=== PATIENT | female | born 1960 | race African-American/Black ===

== ENCOUNTER 2023-11-20 14:11 | Emergency (ER) | payer BC ==
[~2023-11-20] VITALS: Ht 175.3 cm; Wt 116.0 kg
[2023-11-20 14:28] VITALS: O2SAT 96
[2023-11-20 15:19] LABS: BASOPHILS % 0.6 % (0.0-2.0); EOSINOPHILS % 1.7 % (0.0-5.0); HEMATOCRIT. 38.3 % (36.0-48.0); HEMOGLOBIN. 12.6 g/dL (12.0-16.0); LYMPHOCYTES % 38.3 % (20.0-50.0); MEAN CORPUSCULAR HEMOGLOBIN 28.3 pg (28.0-32.0); MEAN CORPUSCULAR HGB CONC 32.9 g/dL (31.0-37.0); MEAN PLATELET VOLUME 9.7 fl (7.4-10.4); MONOCYTES % 7.8 % (2.0-8.0); NEUTROPHILS % 51.6 % (40.0-76.0); PLATELET 222 x1000/uL (130-400); RED BLOOD CELL COUNT 4.45 mill/uL (4.2-5.4); RED CELL DISTRIBUTION WIDTH 15.2 % (11.6-14.6); WHITE BLOOD COUNT 5.7 x1000/uL (4.5-11.0)
[2023-11-20 15:22] LABS: CARBON DIOXIDE 31 mEq/L (21-32); CHLORIDE 105 mEq/L (98-107); POTASSIUM 3.6 mEq/L (3.5-5.1); SODIUM 142 mEq/L (136-145)
[2023-11-20 15:23] LABS: CALCIUM 10.2 mg/dL (8.7-10.4)
[2023-11-20 15:28] LABS: CREATININE 0.7 mg/dL (0.6-1.0); GLUCOSE 109 mg/dL (70-105); UREA NITROGEN BLOOD 8 mg/dL (9-23)
[2023-11-20 15:31] LABS: TROPONIN I HIGH SENSITIVITY < 4 ng/L (3.0-34)
[2023-11-20] MEDS: HYDROCHLOROTHIAZIDE 25MG TABLET PO ONE (19:22)
[2023-11-20 19:23] VITALS: BP 165/73; PULSE 70; RESP 18; TEMP 98.5
== END 2023-11-20 20:15 | disposition home or self-care (01) ==
LOC: ER 14:11
DX: R00.2 Palpitations (principal); R20.2 Paresthesia of skin; G90.50 Complex regional pain syndrome I, unspecified; M10.9 Gout, unspecified
CPT/HCPCS: 36415; 71045; 80048; 84484; 85025; 93005; 99285